=== PATIENT | female | born 1965 | race Caucasian/White ===

== ENCOUNTER 2018-04-27 08:15 | Emergency (ER) | payer MEDICAID ==
[~2018-04-27] VITALS: Ht 160 cm; Wt 67.0 kg
[~2018-04-27 08:15] MED LIST: NAPR-679 PO; RISPERDAL
[2018-04-27] MEDS ORDERED: DIPHENHYDRAMINE 50MG/ML VIAL IV ONE (08:45)
[2018-04-27] MEDS ORDERED: KETOROLAC 30MG/ML VIAL IV ONE (08:45)
[2018-04-27] MEDS ORDERED: SODIUM CHLORIDE 0.9% 1,000 ML IV ONE (08:45)
[2018-04-27] MEDS ORDERED: METOCLOPRAMIDE HCL 10MG/2ML VIAL IV ONE (08:45)
[2018-04-27] MEDS ORDERED: MORPHINE SULFATE 2 MG/ML CPJ (NOT FOR IM USE) IV ONE (11:45)
[2018-04-27 12:41] VITALS: BP 157/82
== END 2018-04-27 14:00 | disposition home or self-care (01) ==
LOC: ER 08:15
DX: R51 Headache (principal); F32.9 Major depressive disorder, single episode, unspecified; Z98.51 Tubal ligation status
CPT/HCPCS: 70450; 96361; 96374; 96375; 99284; J1200; J1885; J2270; J2765; J7030